=== PATIENT | male | born 1950 | race Caucasian/White ===

== ENCOUNTER 2017-04-29 04:25 | Inpatient (IN) | payer MEDICARE ==
[2017-04-29 07:34] LABS: Hematocrit 43 % (42-52); Hemoglobin 14.9 g/dl (14.0-18.0); Mean Corpuscular HGB Conc 34 g/dl (31-36); Mean Corpuscular Hemoglobin 31 pg (27-31); Mean Corpuscular Volume 91 fL (80-94); Mean Platelet Volume 7 um3 (7.4-10.4); Red Blood Count 4.77 10^6/ul (4.0-5.4); Red Cell Distribution Width 14 % (10.5-15); White Blood Count 15.6 10^3/ul (3.5-10.8)
--- NOTE | 2017-04-29 07:40 | ED ---
David Wynne Benjamin, scribed for Los Oviedo MD on 04/29/17 at 0636 . Abdominal Pain/Male - HPI Summary HPI Summary: 67yo male history of Parkinson's on Sinemet via peg tube c/o abdominal pain since 0100 this morning. Pt states abdominal pain started on the left side but not present diffusely in all sections of the abdomen. Abdomen also feels full. Pt has a G-tube inserted into his abdomen, which is connected to a biomedical service engineer. There is redness surrounding the insertion site, which is normal for the pt. No pain around the insertion site. Last BM was last night. Denies N/V/ D. No fever. - History of Current Complaint Chief Complaint: EDAbdPain Stated Complaint: ABD PAIN Time Seen by Provider: 04/29/17 06:16 Hx Obtained From: Patient, Family/Kitchen Steward/Stewardess - Onset/Duration: Sudden Onset, Lasting Hours, Still Present Timing: Constant Severity Initially: Moderate Severity Currently: Moderate Pain Intensity: 6 Pain Scale Used: 0-10 Numeric Location: Diffuse Radiates: No Aggravating Factor(s): Nothing Alleviating Factor(s): Nothing Associated Signs And Symptoms: Negative: Fever, Cough, Chest Pain, Blood in Stool, Nausea, Vomiting, Diarrhea - Allergies/Home Medications Allergies/Adverse Reactions: Allergies Allergy/AdvReac Type Severity Reaction Status Date / Time walnuts Allergy See Comment Uncoded 04/29/17 04:31 PMH/Surg Hx/FS Hx/Imm Hx - Surgical History Surgery Procedure, Year, and Place: G-tubed inserted Infectious Disease History: No Infectious Disease History: Denies: Traveled Outside the [place] in Last 30 Days - Family History Known Family History: Positive: Cardiac Disease, Hypertension Negative: Blood Disorder Review of Systems Constitutional: Negative Negative: Fever Eyes: Negative ENT: Negative Cardiovascular: Negative Respiratory: Negative Positive: Abdominal Pain - left sided , Other - G-tubed inserted in abdomen Genitourinary: Negative Positive: no symptoms reported Musculoskeletal: Negative Skin: Negative Neurological: Negative Psychological: Normal All Other Systems Reviewed And Are Negative: Yes Physical Exam - Summary Physical Exam Summary: Appearance: NAD. Slightly anxious appearing, Well-nourished Skin: Warm Eyes: Normal ENT: Normal Neck: Supple, nontender Respiratory: Clear to auscultation Cardiovascular: Normal Abdomen: Soft, nontender. LUQ G-tube in placed, attached to the biomedical service engineer. Mild erythema around the insertion site that is non tender and not warm. No rebound or guarding. Bowel: Present Musculoskeletal: Normal, Strength/ROM Intact Neurological: Normal, A&Ox3 Psychiatric: Normal Triage Information Reviewed: Yes Vital Signs On Initial Exam: Initial Vitals Temp Pulse Resp BP Pulse Ox 97.2 F 80 16 158/94 98 04/29/17 04:28 04/29/17 04:28 04/29/17 04:28 04/29/17 04:28 04/29/17 04:28 Vital Signs Reviewed: Yes Diagnostics - Vital Signs Vital Signs Temp Pulse Resp BP Pulse Ox 04/29/17 04:28 97.2 F 80 16 158/94 98 - Laboratory Lab Results: Lab Results 04/29/17 Range/Units 07:10 WBC 15.6 H (3.5-10.8) 10^3/ul RBC 4.77 (4.0-5.4) 10^6/ul Hgb 14.9 (14.0-18.0) g/dl Hct 43 (42-52) % MCV 91 (80-94) fL MCH 31 (27-31) pg MCHC 34 (31-36) g/dl RDW 14 (10.5-15) % Plt Count 245 (150-450) 10^3/ul MPV 7 L (7.4-10.4) um3 Neut % (Auto) 87.7 H (38-83) % Lymph % (Auto) 6.9 L (25-47) % Bucks % (Auto) 4.8 (1-9) % Eos % (Auto) 0.3 (0-6) % Baso % (Auto) 0.3 (0-2) % Absolute Neuts (auto) 13.7 H (1.5-7.7) 10^3/ul Absolute Lymphs (auto) 1.1 (1.0-4.8) 10^3/ul Absolute Monos (auto) 0.7 (0-0.8) 10^3/ul Absolute Eos (auto) 0 (0-0.6) 10^3/ul Absolute Basos (auto) 0 (0-0.2) 10^3/ul Absolute Nucleated RBC 0 10^3/ul Nucleated RBC % 0 Result Diagrams: 04/29/17 07:10 Lab Statement: Any lab studies that have been ordered have been reviewed, and results considered in the medical decision making process. Abdominal Pain Fem Course/Dx - Diagnoses Provider Diagnoses: Abdominal pain Discharge - Discharge Plan Condition: Stable Disposition: OTHER Discharge Disposition Comment: pt care signed out to AM attending Dr. De La O, pending abd CT Referrals: Rosalio Perez MD [Primary Care Provider] - The documentation as recorded by the David abel Benjamin accurately reflects the service I personally performed and the decisions made by me, Los Oviedo MD.
[2017-04-29 07:49] LABS: Albumin 4.3 g/dL (3.2-5.2); BUN/Creatinine Ratio 17.3 (8-20); C Reactive Protein 4.48 mg/L (< 5.00); Calcium 9.7 mg/dL (8.6-10.3); EGFR Non-African American 95.6 (>60); Globulin 3.1 g/dL (2-4); Magnesium 1.8 mg/dL (1.9-2.7); Potassium 4.2 mmol/L (3.5-5.0); Total Bilirubin 0.5 mg/dL (0.2-1.0); Total Protein 7.4 g/dL (6.4-8.9)
[2017-04-29] MEDS ORDERED: Iodixanol* (CONTRAST) 320 MG/ML 100 ML SDV IV ONE (08:01)
[2017-04-29] MEDS ORDERED: LORazepam INJ* 2 MG/ML 1 ML VIAL ONE (08:05)
--- NOTE | 2017-04-29 08:22 | RAD ---
HISTORY: Abdominal pain COMPARISONS: None VIEWS: Frontal views of the abdomen. FINDINGS: BOWEL: There is a nonobstructive bowel gas pattern. There is a large amount of stool within the colon. CALCULI: There are no abnormal calculi. BONES AND SOFT TISSUES: Mild degenerative changes are noted. OTHER FINDINGS: The lung bases are clear. There is no subphrenic gas. Metallic leads are noted overlying the upper abdomen. IMPRESSION: NONOBSTRUCTIVE BOWEL GAS PATTERN. LARGE AMOUNT OF STOOL WITHIN THE COLON.
[2017-04-29] MEDS ORDERED: LORazepam INJ* 2 MG/ML 1 ML VIAL IV PUSH ONE ×2 (08:47→08:58)
--- NOTE | 2017-04-29 09:07 | RAD ---
CLINICAL HISTORY: Left mid and lower abdominal pain. Relevant surgical history includes placement of a gastrostomy tube. COMPARISON: Relevant surgical history includes placement of a gastrostomy tube. TECHNIQUE: Contrast enhanced CT examination of the abdomen and pelvis from the lung bases through the initial tuberosities. The patient received 110 mL Visipaque 320 intravenously prior to imaging.The patient received oral contrast as well prior to imaging. FINDINGS: VISUALIZED LUNG BASES: Left greater than right linear based density is seen at the bilateral lung bases. Otherwise the visualized lung bases are grossly clear. There is no pleural effusion. ABDOMEN AND PELVIS: Postsurgical changes include a properly positioned gastrostomy tube. There is surgical material in the gastric lumen extending as far as the second portion of the duodenum. The liver, spleen and adrenal glands are grossly normal in appearance. The gallbladder is normal. At the head of the pancreas there is a 9 mm fat density focus in the head of the pancreas (image 33). The pancreas is otherwise normal in attenuation without visible pancreatic duct dilatation. There is stranding of the peripancreatic fat along the body and tail of the organ with trace fluid extending along the anterior margin of the perirenal fascia on the left (image 34). The right kidney is normal in appearance without focal mass, calcification or signs of hydronephrosis. At the mid-level left kidney there is a mixed attenuation exophytic cortical soft tissue nodule measuring 1.7 cm in greatest dimension (axial image 38 coronal image 73). There are contrast has only progressed as far as the distal small bowel which prevents a more thorough evaluation of the distal most small bowel and colon. The appendix measures 7 mm in diameter (coronal image 46 and axial image 64). The small and large bowel are not distended. Scattered distal colonic diverticula are noted but none exhibit focal inflammatory change. There is no gross retroperitoneal or mesenteric lymphadenopathy. There are small fat-containing inguinal hernias, slightly larger on the left than the right. The pelvic viscera is normal in appearance. The mildly calcified abdominal aorta and iliac arteries are normal in course and diameter. Degenerative changes include multilevel loss of intervertebral disc height involving the lower thoracic and lumbar spine.There are no sinister bone lesions. IMPRESSION: 1. CT findings are most consistent with pancreatitis. 2. Soft tissue nodule in the left kidney measuring 1.7 cm in greatest dimension. Further characterization with either a nonemergent ultrasound or contrast-enhanced MRI is advised. 3. Additional chronic, degenerative and iatrogenic findings described in the body the report.
[2017-04-29 09:17] LABS: Urine Bilirubin Negative (Negative); Urine Glucose Negative (Negative); Urine Nitrite Negative (Negative)
[2017-04-29] MEDS ORDERED: Morphine INJ* 2 MG/ML 1 ML SYRINGE (TWO MG - NEW SYRINGE VERSION) IV PRN (10:21)
[2017-04-29] MEDS ORDERED: Ondansetron INJ* 2 MG/ML VIAL IV PRN (10:21)
[2017-04-29] MEDS ORDERED: Acetaminophen TAB* 325 MG PO PRN (10:21)
[2017-04-29] MEDS: NS 0.9% 1000 ML* 2,000 ML IV ONE (11:26)
--- NOTE | 2017-04-29 12:33 | HP ---
CONTINUATION OF HISTORY AND PHYSICAL CC: (To providers listed above.) DATE OF ADMISSION: 04/29/2017. ASSESSMENT AND PLAN: 1. The patient is quite somnolent after receiving Ativan in the emergency room for the dystonic reac tion he was having. We will need to monitor his pain level closely. He has Morphine available for p ain and Zofran available for nausea. For now, he will be NPO except for sips of water with medicatio ns. 2. Advanced Parkinson's disease: The patient has a history of advanced Parkinson's which he has eden ated with Duopa, deep brain stimulator, Comtan and Azilect. The patient's states that when his medication regimen is working perfectly, he does quite well. She did note this morning, however, michael t he began to have a dystonic reaction around 6:45 a.m. She thought that he was receiving too much o f his Duopa and therefore turned off the infusion. The patient, however, continued to progress. Dr. De La O spoke with the patient's primary neurologist who recommended turning off the deep brain stimul ators. This was attempted; however, the patient worsened and therefore these were turned back on. A t this point, the patient is not receiving his Duopa, but his deep brain stimulators are active. The patient's questions when he should be restarted on his Duopa versus taking Sinemet instead. At this point, we will see how he is doing when the Ativan wears off. If the patient is not having a s evere dystonic reaction at that time, perhaps he can be started on his back-up Sinemet dosing. I am going to let the patient's guide me on the dosing of this as she stated that she can tell when h e needs his medication or not. Dr. France will consult on the patient to cordwood cutter helper in deciding when to resume his medications. 3. DVT prophylaxis: According to the adult thrombosis prophylaxis risk factor assessment guide, the patient has a total risk factor score of 3, making him high risk. He will be placed on Heparin 5000 units subcutaneous q.8 hours. 4. Code status is full. The patient's is his healthcare proxy. Seventy minutes were spent admitting this patient. [id number]/[facility] #: [id number]
[2017-04-29] MEDS: Pantoprazole IV* 40 MG IV SCH (12:41)
--- NOTE | 2017-04-29 13:48 | HP ---
CC: Dr. Perez; Dr. Rubina Rodriguez * HISTORY AND PHYSICAL: DATE OF ADMISSION: 04/29/17. PRIMARY CARE PROVIDER: Dr. Perez. NEUROLOGIST: Rubina Rodriguez MD. CHIEF COMPLAINT: Abdominal pain. HISTORY OF PRESENT ILLNESS: Mr. Dowling is a 67-year-old male who was brought to the emergency room by his after he began to complain of severe abdominal pain and he was noted to have be having dystonic reactions at home. The patient was having severe dystonic reaction in the emergency room and was given Ativan and since then has been quite groggy and really unable to provide any history at this point. The history is obtained from the patient's . She states that at approximately 12:30 a.m. on the day of admission he wakened her from sleep with complaints of left upper quadrant pain. She states that he will intermittently have issues with constipation and she thought that perhaps this is what was going on. She states that he has not had a bowel movement since this past Friday. However on Friday he had a significant amount of diarrhea after eating a tremendous amount of sweets to try to clean himself out. He has had no nausea or vomiting. As the morning progressed the patient began to have dystonic reaction. She notes that when he gets too much of his Duopa, he will get all cramped up. She started to notice this at approximately 6:45 a.m.; however, this progressed throughout the morning and ultimately she brought him to the emergency room to be evaluated. PAST MEDICAL HISTORY: 1. Parkinson's disease. 2. Depression. PAST SURGICAL HISTORY: Deep vein stimulator implantation x2, and what sounds to be feeding tube with both G and J ports. MEDICATIONS: 1. Duopa via pump continuously. 2. Sinemet CR 25/100 one tab p.o. daily. 3. Paxil 30 mg p.o. daily. 4. Azilect 1 mg p.o. daily. 5. Multivitamin 1 tab p.o. daily. 6. Calcium carbonate chews 500 mg p.o. t.i.d. with meals p.r.n. 7. Sinemet 25/100 one tab p.o. q.a.m. p.r.n. Parkinson symptoms. 8. Sinemet 25/100 one tab p.o. q.h.s. 9. Comtan 200 mg p.o. q. 4 hours. ALLERGIES: No known drug allergies. FAMILY HISTORY: Patient's mom had Parkinson disease. His dad had prostate cancer. SOCIAL HISTORY: The patient is a lifelong nonsmoker. He does not drink alcohol. 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 He is . He has 2 children. His , Neyl, is his healthcare proxy. REVIEW OF SYSTEMS: Is unobtainable from the patient as he received Ativan in the ER and is now quite somnolent. PHYSICAL EXAMINATION GENERAL: The patient is a well-developed, middle-aged male, lying in the stretcher sleeping, but arousable to voice and light touch. VITAL SIGNS: Blood pressure 145/77, pulse 85, respirations 22, temperature 97.2 , O2 saturation 93% on room air. HEENT: Pupils are equal. They are round. Extraocular muscles appear to be intact. Oropharynx is clear. Oral mucosa is dry. There is no submandibular, cervical or supraclavicular adenopathy. Thyroid is not enlarged. No thyroid nodules are noted. PULMONARY: Lungs are clear to auscultation anteriorly. CARDIAC: Normal S1, S2. Regular rate and rhythm. I do not appreciate any murmurs. There is no lower extremity edema. ABDOMEN: Bowel sounds present. Abdomen is soft, nondistended, he is moderately tender to palpation in the epigastrium and to the left side. There is a feeding tube exhibiting through the patient's upper abdomen. There is surrounding erythema that reportedly is chronic. MUSCULOSKELETAL: The patient does shift in bed, however he does not make any significant movements with his extremities. NEURO: The patient awakens to voice and light touch; however, quickly goes back to sleep; therefore, neuro exam is not performed at this time. There is no evidence of dystonic reaction currently. SKIN: Is warm and dry. There are no rashes. There is a slight area of erythema surrounding the feeding tube. PSYCH: Is unable to be assessed at this time. LABORATORY DATA: WBC 15.6, hemoglobin 14.9, hematocrit 43, platelets 245. INR 0.91. Sodium 135, potassium 4.2, chloride 103, CO2 26, BUN 14, creatinine 0.81. Glucose 130, lactic acid 0.9, calcium 9.7, magnesium 1.8, bilirubin 0.5, AST 15, ALT 3, alk phos 76. CRP 4.48. Albumin 4.3, lipase 3507. Urinalysis reveals trace ketones and otherwise is negative. Chest x-ray: No active disease. Abdomen x-ray: Nonobstructive bowel gas pattern; large amount of stool within the colon. CT abdomen and pelvis: CT findings are most consistent with pancreatitis. There is a soft tissue nodule on the left kidney measuring 1.7 cm in greatest dimension, further characterization with either a nonemergent ultrasound or contrast enhanced MRI as advised. ASSESSMENT AND PLAN: Mr. Dowling is a 67-year-old male with advanced Parkinson disease treated with a Duopa infusion, deep vein stimulator, Azilect and Comtan , who presents to the emergency room with complaints of abdominal pain and dystonic reaction. 1. Abdominal pain. Lab findings and CT imaging are consistent with acute pancreatitis. The patient does have tenderness in the epigastrium. The etiology of the pancreatitis, however, is unclear. In reviewing his medications it does not appear that any of these cause pancreatitis. He does not drink alcohol. I will add a triglyceride level to his lab work obtained in the emergency room and we will obtain a right upper quadrant ultrasound to evaluate for common bile duct stone which could cause gallstone pancreatitis. For now the patient will be admitted to the medical floor and started on aggressive IV fluid hydration. He will receive 2 L of normal saline bolused as it does not appear that he has received any in the emergency room yet. As he appears dehydrated he will get this 2 L boluses followed by normal saline at 100 mL/hour. We will need to monitor his pain level. The patient is quite somnolent after receiving Ativan in the emergency room for the dystonic reaction he was having. We will need to monitor his pain level closely. He has Morphine available for pain and Zofran available for nausea. For now, he will be NPO except for sips of water with medications. 2. Advanced Parkinson's disease: The patient has a history of advanced Parkinson's which he has treated with Duopa, deep brain stimulator, Comtan and Azilect. The patient's states that when his medication regimen is working perfectly, he does quite well. She did note this morning, however, that he began to have a dystonic reaction around 6:45 a.m. She thought that he was receiving too much of his Duopa and therefore turned off the infusion. The patient, however, continued to progress. Dr. De La O spoke with the patient's primary neurologist who recommended turning off the deep brain stimulators. This was attempted; however, the patient worsened and therefore these were turned back on. At this point, the patient is not receiving his Duopa, but his deep brain stimulators are active. The patient's questions when he should be restarted on his Duopa versus taking Sinemet instead. At this point, we will see how he is doing when the Ativan wears off. If the patient is not having a severe dystonic reaction at that time, perhaps he can be started on his back-up Sinemet dosing. I am going to let the patient's guide me on the dosing of this as she stated that she can tell when he needs his medication or not. Dr. France will consult on the patient to vessel scrapper helper in deciding when to resume his medications. 3. DVT prophylaxis: According to the adult thrombosis prophylaxis risk factor assessment guide, the patient has a total risk factor score of 3, making him high risk. He will be placed on Heparin 5000 units subcutaneous q.8 hours. 4. Code status is full. The patient's is his healthcare proxy. Seventy minutes were spent admitting this patient. [id number]/[facility] #: [id number]/[facility] #: [id number] KELLI
[2017-04-29] MEDS ORDERED: ENTACAPONE 200 MG PO SCH ×2 (14:00→21:00)
--- NOTE | 2017-04-29 14:08 | RAD ---
HISTORY: Gallstones pancreatitis COMPARISONS: CT dated April 29, 2017 TECHNIQUE: Multiple transverse and longitudinal ultrasound images were obtained of the right upper quadrant of the abdomen using grayscale and color Doppler imaging. FINDINGS: The study is technically limited LIVER: The liver is diffusely echogenic and coarse in echotexture, with decreased acoustic transmission. The liver is otherwise normal in shape, size, and contour. There is normal hepatopedal flow of the portal vein on Doppler imaging. BILIARY TREE: There is no intrahepatic or extrahepatic biliary dilatation. The common duct measures 0.5 cm. GALLBLADDER: The gallbladder is well-visualized. There is no cholelithiasis, gallbladder wall thickening, pericholecystic fluid, or sonographic Warner sign. PANCREAS: The pancreas is obscured by overlying bowel gas. RIGHT KIDNEY: The right kidney is normal in shape, size, contour, and echogenicity. There is no hydronephrosis or nephrolithiasis. The right kidney measures 10 x 6.4 x 4.7 cm. AORTA AND IVC: The aorta and IVC are unremarkable. FLUID: There are no pleural effusions. There is no free fluid within the hepatorenal recess. OTHER FINDINGS: None. IMPRESSION: 1. LIMITED STUDY. 2. FATTY INFILTRATION OF THE LIVER. 3. NO CHOLELITHIASIS.
[2017-04-29] MEDS: Heparin VIAL(*) 5000 UNITS/ML VIAL (FIVE THOUSAND) SUBCUT SCH ×2 (14:12→23:36)
[2017-04-29] MEDS: NS 0.9% 1000 ML* 1,000 ML IV SCH ×2 (14:12→23:52)
[2017-04-29] MEDS: Carbidopa/Levodop 25/100 MG TAB(*) PO SCH ×2 (16:32→18:03)
--- NOTE | 2017-04-29 17:15 | ED ---
Dony Wynne Angela, scribed for Kentrell De La O MD on 04/29/17 at 0805 . Progress - Progress Note Progress Note: This pt was signed out by Dr. Oviedo, pending disposition, awaiting CT abdomen/ pelvis. Pt is a 67 y/o male, with history of Parkinson's on Sinemet via peg tube, c/o abdominal pain since 0100 this morning. Per , pt walked into the ED this morning. notes the pt is usually constipated. His last normal BM was 5 days ago. Per , pt had half a pack of chocolate 5 days ago and had diarrhea (just lasting that day). Pt denies nausea, vomiting, fever. Pt has had normal fluid intake. paper feeder was placed 2 years ago. Pt is very stiff, which notes is abnormal for the pt. denies history of seizures. Pt's neurologist is in [place], Dr. Rubina Rodriguez. Physical Exam: VITAL SIGNS: Reviewed. GENERAL: Patient is a well-developed and nourished male. Patient is not in any acute respiratory distress. HEAD AND FACE: No signs of trauma. No ecchymosis, hematomas or skull depressions. No sinus tenderness. EYES: PERRLA, EOMI x 2, No injected conjunctiva, no nystagmus. EARS: Hearing grossly intact. Ear canals and tympanic membranes are within normal limits. MOUTH: Oropharynx within normal limits. NECK: Supple, trachea is midline, no adenopathy, no JVD, no carotid bruit, no c- spine tenderness, neck with full ROM. CHEST: Symmetric, no tenderness at palpation LUNGS: Clear to auscultation bilaterally. No wheezing or crackles. CVS: Regular rate and rhythm, S1 and S2 present, no murmurs or gallops appreciated. ABDOMEN: Soft, non-tender. No signs of distention. No rebound no guarding, and no masses palpated. Bowel sounds are normal. Positive J tube in the upper abdomen EXTREMITIES: FROM in all major joints, no edema, no cyanosis or clubbing. NEURO: Alert and oriented x 3. follows commands. Dyskinesia movements secondary to muscle spasms. SKIN: Dry and warm - Results/Orders Results/Orders: Abdomen XR, per radiologist: Nonobstructive bowel gas pattern. Large amount of stool within the colon. ED physician has reviewed this radiology report and agrees. CT abdomen/pelvis, per radiologist: IMPRESSION: 1. CT findings are most consistent with pancreatitis. 2. Soft tissue nodule in the left kidney measuring 1.7 cm in greatest dimension. Further characterization with either a nonemergent ultrasound or contrast-enhanced MRI is advised. 3. Additional chronic, degenerative and iatrogenic findings described in the body report. ED physician has reviewed this radiology report and agrees. Re-Evaluation - Re-Evaluation First Eval Re-Evaluation Time: 07:22 Comment: Pt continues to have disconnecting movements and muscle spasms. Second Eval Re-Evaluation Time: 08:05 Comment: 2 milligrams of Ativan was given to the pt and now he is resting comfortably. Third Eval Re-Evaluation Time: 09:32 Comment: I discussed the plan for admission with the and pt. They both understand and agree. Course/Dx - Course Course Of Treatment: This pt was signed out by Dr. Oviedo to follow up on CT abdomen/pelvis for further disposition and plan. When I went to evaluate the pt , he had disconnecting movements and pain secondary to muscle spasms. I discussed the case with Dr. Rubian Rodriguez, pts neurologist in [place]. She asked me to manipulate the batteries and after we tried the pt became worse. She agreed for the pt to be given Ativan. After 2 milligrams of Ativan, the pts symptoms improved. Test results shows lipase of 3507, consistent with acute pancreatitis. The abdomen/pelvis CT shows 1. CT findings are most consistent with pancreatitis. 2. Soft tissue nodule in the left kidney measuring 1.7 cm in greatest dimension. Further characterization with either a nonemergent ultrasound or contrast-enhanced MRI is advised. 3. Additional chronic, degenerative and iatrogenic findings described in the body report. The abdomen/pelvis CT confirms pancreatitis. The pt does not have RUQ pain and does not drink alcohol. However, the pt has a J- tube and is on the duodenum, which can be the cause of his pancreatitis. I discussed the case with Dr. Martinez , who accepted the pt for admission. Pt will be admitted to [facility] in stable condition with a diagnosis of pancreatitis. Pt is alert and oriented x2, at his baseline. - Diagnoses Provider Diagnoses: Pancreatitis, Constipation, Parkinson disease - Provider Notifications Discussed Care Of Patient With: Dr. Rubina Rodriguez - Pt's neurologist Time Discussed With Above Provider: 08:00 Instructed by Provider To: Other - I discussed the pt's case with Dr. Rodriguez, pt 's neurologist. She requested to turn off the medical case worker and infusions. We tried turning them off but the symptoms worsened. She recommened to turn the device on. Pt was given 2 milligrams of Ativan and now the pt is resting comfortably. [09:31] I discussed pt care with Dr. Martinez, who has agreed to admit the pt. The documentation as recorded by the Dony abel Angela accurately reflects the service I personally performed and the decisions made by me, Kentrell De La O MD.
[2017-04-29] MEDS ORDERED: Carbidopa/Levodop 25/100 MG TAB(*) PO SCH (20:00)
--- NOTE | 2017-04-29 22:24 | CONS ---
CC: Dr. Rubina Rodriguez, Movement Disorders Unit, [facility], [facility] * NEUROLOGY CONSULTATION: DATE OF CONSULT: 04/29/17 LOCATION: He is in room 401. REFERRING PHYSICIAN: Dr. Priya Martinez. PRIMARY CARE PHYSICIAN: Dr. Perez. CHIEF COMPLAINT: History of Parkinson's disease, pancreatitis. HISTORY OF PRESENT ILLNESS: Kasi Dowling is a 67-year-old man admitted today via the emergency room with abdominal pain and constipation and dystonia. He has Parkinson's disease and is able to tell me when I aroused him that it began about when he was 49. I subsequently spoke with Dr. Rodriguez on the phone and got further history. His was present when he came in and she provided history as well, but she is not present during my evaluation this afternoon. He had deep brain stimulators put in some years ago and they did not achieve the desired effect. He subsequently had a Duodopa duodenal infusion pump put in and he responded very well to that. He has had problems with intermittent constipation and that started up sometime within the last week or more and he not had had a bowel movement in several days. He started to have marked dystonia today and ended up in the emergency room with abdominal pain and dystonia. In speaking with Dr. Rodriguez, he tends to get dystonia with peak doses. Most of his dystonia is around his face and hands. Should also note that when he was seen in followup up there within recent months, his tubing was coiled in the small intestine. Other than Parkinson's disease and depression, his past medical history is unremarkable. He has had the procedures outlined above. MEDICATIONS: At home, consist of: 1. Duodopa pump. 2. Sinemet CR 25/100 one p.o. in the morning. 3. Regular Sinemet 25/100 one p.o. q.a.m. and one at bedtime. 4. Comtan 200 mg p.o. q.4 hours. 5. Rasagiline 1 mg p.o. q. day. 6. Paxil 30 mg p.o. q. day. ALLERGIES: He is not reported to have any allergies. REVIEW OF SYSTEMS: From the patient is unproductive as he is somnolent. He has received Ativan in the emergency room and apparently that calmed down the dystonia. PHYSICAL EXAM: Temperature is 98 axillary, has not recorded a fever. Blood pressure 140/80 earlier, more recently 168/75; heart rate in the 70s and seems regular. Respirations are about 18 and regular. Oxygen saturation is 98% on room air. Skin is somewhat pale. Heart is in a regular rhythm without murmurs. Head is atraumatic. Oral mucosa is moist. He has bilateral post surgical changes on the upper head from his prior DBS insertion. He has a subcutaneous generator in the anterior chest. He has a percutaneous tube for his Duodopa pump. Lungs are clear bilaterally. Skin is warm and dry. Neurologically, he is somnolent, but arouses to loud voice and gentle shaking. He is able to say that he is in the hospital in [place]. He has to be stimulated to be kept awake. When he is asleep, he is pretty motionless and snores. When he is aroused, he develops oral facial dystonia and some hand dystonia. There is no rigidity in the limbs even when he sat up when an aide came in to check some vitals. He did not sit up for long and lied back down again. There was no tremor. I was able to arouse him enough to perform finger taps in both hands slowly and with a little bit of clumsiness bilaterally. Speech was dysarthric and soft, but the few words he did speak were fairly intelligible. DIAGNOSTIC STUDIES/LAB DATA: Includes a CT of the abdomen and pelvis interpreted as showing pancreatitis. A chest x-ray interpreted as normal. Other laboratory is notable for a normal chemistry profile other than glucose 130, magnesium 1.8, lipase elevated at 3507. CBC is notable for elevated white blood cell count of 15.6 with a slight shift with 87.7% neutrophils. Hemoglobin and platelet count and INR are all normal. Urinalysis unremarkable. IMPRESSION AND PLAN: Impression is that of pancreatitis in a patient with advanced Parkinson's disease. There is some question as to whether or not his Duodopa pump is working effectively with coiling in the small intestine. I spoke with Dr. Rodriguez and she also raised the hypothesis of possible obstruction of the pancreatic duct from the tubing. I spoke with Dr. Martinez and she is going to ask GI to see him. Dr. Rodriguez suggested that if they can potentially scope him and straighten up the tubing, that might be helpful. If not, we may have to transfer him to [place] particularly if he needs the tubing removed and replaced. If the pump can be continued, we will continue it, but if not, he will be switched to oral carbidopa/levodopa immediate release 1- 1/2 tablets every 2 hours from 4 a.m. to 10 p.m. after I discussed the case with Dr. Rodriguez. His other meds will be continued as before. Dr. Rodriguez has asked that GI contact her directly at her cell phone of [phone]. I will speak with his when she is available. [id number]/[facility] #: [id number] [facility]
--- NOTE | 2017-04-29 22:49 | CONS ---
GASTROENTEROLOGY CONSULT: DATE OF CONSULT: 04/29/17 CONSULTING PHYSICIAN: Priya Martinez DO REASON FOR CONSULTATION: Acute pancreatitis, initial episode with question of drug absorption through his percutaneous duodenal tube. HISTORY OF PRESENT ILLNESS: This 67-year-old man with parkinsonism, who has been receiving special dopaminergic medications via continuous enteric pump, developed abdominal pain in the seed sorter hours. He was brought to the emergency room and was found to be uncomfortable with a white count of 15 and a lipase of 3500 with normal LFTs. His triglycerides were normal at 146 and calcium 9.7. His neurologic functioning has been impaired for the last day, raising a question of absorption or mechanical stability of his enteric drug administration. Apparently in the past, displacement or kinking of the tube was felt to be related to loss of parkinsonism control. He says he has never had pancreatitis before. He is not aware of anyone else in the family having it. He is a nondrinker. PAST MEDICAL HISTORY: 1. Parkinsonism. 2. Deep brain simulator implantation. 3. Gastrostomy tube. 4. Depression. FAMILY HISTORY: Negative for pancreatitis. His mother had parkinsonism. SOCIAL HISTORY: He lived in the [facility] about 2 years ago when he moved here to be near his daughter and 3 granddaughters. He is a lifetime nonsmoker. REVIEW OF SYSTEMS: From various sources, the review of systems is that he has not had a CVA, seizures, arrhythmias, [place], TB, hepatitis, abdominal surgery, or renal stones. PHYSICAL EXAM: He is an older man in bed, afebrile. Pulse 85, blood pressure 149/78. Skin is a little bit warm, but dry. HEENT exam shows no icterus. He has moist mucous membranes. He has no adenopathy or bruits. His lungs are clear. There was no cough. Abdomen is symmetric with no bowel sounds currently , though it is soft and with minimal tenderness. Extremities show no edema. Neurologic was not tested. He has been seen by Dr. France of Neurology. LABORATORY DATA: Hemoglobin 14.9, hematocrit 43, MCV 91, platelets 245. Electrolytes normal. BUN 14, creatinine 0.81, bilirubin 0.5, ALT 3, alkaline phosphatase 76 with all these labs on admission and no prior for comparison. Albumin is 4.3. RADIOLOGY REVIEW: Right upper quadrant ultrasound shows no stones. CT scan, coronal images number 50 clearly shows the distal tip of the feeding tube projecting straight in axis with the second portion of the duodenum. The tube coils around the duodenal bulb, but is not apparently kinked and clearly has a continuous smooth contour going around the bulb and then down the second portion. Images of the pancreas did not show any stranding near the head or distal body of the pancreas. Pancreatic duct is not obviously dilated and there are no calcifications. Inflammation extends out towards the spleen. IMPRESSION: This 67-year-old man presents with prodrome of constipation in the setting of parkinsonism and then left upper quadrant pain which corresponds fairly well to the CT showing inflammation in the body and tail of the pancreas. The cause of this is unknown, but the setting with no obvious metabolic or medication cause raise question of an intraductal papillary mucinous neoplasm or intrapancreatic mucinous neoplasm. This could be assessed with EUS once he recovers. Right now, he does not appear very functional presumably based on some ileus and alteration in the absorption of his medication. It will be surprising not to have that altered by a bout of pancreatitis. My interpretation of the x- rays is that there is not a kink or mechanical cause of his drug to be delivered or absorbed. [id number]/[facility] #: [id number] MTDD
[2017-04-29] MEDS: Carbidopa/Levodop CR 50/200(*) TAB.CR PO SCH (23:34)
[2017-04-30] MEDS: Carbidopa/Levodop 25/100 MG TAB(*) PO SCH ×2 (02:52→20:28)
[2017-04-30] MEDS: CMCS: Entacapone (NF) 200 MG TAB PO SCH ×3 (02:52→20:00)
[2017-04-30] MEDS ORDERED: Carbidopa/Levodop 25/100 MG TAB(*) PO SCH ×2 (04:00→21:00)
[2017-04-30] MEDS: Heparin VIAL(*) 5000 UNITS/ML VIAL (FIVE THOUSAND) SUBCUT SCH ×3 (07:17→20:06)
[2017-04-30 09:15] LABS: Hematocrit 40 % (42-52); Hemoglobin 13.5 g/dl (14.0-18.0); Mean Corpuscular HGB Conc 33 g/dl (31-36); Mean Corpuscular Hemoglobin 31 pg (27-31); Mean Corpuscular Volume 92 fL (80-94); Mean Platelet Volume 7 um3 (7.4-10.4); Red Blood Count 4.38 10^6/ul (4.0-5.4); Red Cell Distribution Width 14 % (10.5-15); White Blood Count 12.3 10^3/ul (3.5-10.8)
[2017-04-30 09:28] LABS: BUN/Creatinine Ratio 9.8 (8-20); Calcium 8.7 mg/dL (8.6-10.3); EGFR African American 121.3 (>60); EGFR Non-African American 94.3 (>60); Potassium 4.3 mmol/L (3.5-5.0)
[2017-04-30] MEDS: PARoxetine HCL TAB* 10 MG PO SCH (09:28)
[2017-04-30] MEDS: CMC:Rasagiline (NF) 1 MG TAB PO SCH (09:28)
[2017-04-30] MEDS: Pantoprazole IV* 40 MG IV SCH (11:52)
--- NOTE | 2017-04-30 12:54 | PN ---
Subjective Date of Service: 04/30/17 Interval History: Pt is feeling ok. He has a mild amount of pain in his epigastrum. He is anxious to go home however after we talked this AM he understands the rationale to staying overnight. Objective Active Medications: Acetaminophen (Tylenol Tab*) 650 mg PO Q4H PRN PRN Reason: PAIN Carbidopa/Levodopa (Sinemet 25/100 Tab(*)) 1 tab PO DAILY@0200 [facility] Last Admin: 04/30/17 02:52 Dose: 1 tab Carbidopa/Levodopa (Sinemet Cr 50/200(*)) 1.5 tab.cr PO 1999 [facility] Last Admin: 04/29/17 23:34 Dose: 1.5 tab.cr Entacapone (Comtan(Nf)) 200 mg PO 0200,899,1999 [facility] Last Admin: 04/30/17 09:28 Dose: 200 mg Heparin Sodium (Porcine) (Heparin Vial(*)) 5,000 units SUBCUT Q8HR [facility] Last Admin: 04/30/17 07:17 Dose: 5,000 units Sodium Chloride (Ns 0.9% 1000 Ml*) 1,000 mls @ 100 mls/hr IV PER RATE [facility] Last Admin: 04/29/17 23:52 Dose: 100 mls/hr Morphine Sulfate (Morphine Inj (Syringe)*) 2 mg IV Q2H PRN PRN Reason: PAIN Ondansetron HCl (Zofran Inj*) 4 mg IV Q6H PRN PRN Reason: NAUSEA Pantoprazole Sodium (Protonix Iv*) 40 mg IV Q24H [facility] Last Admin: 04/30/17 11:52 Dose: 40 mg Paroxetine HCl (Paxil Tab*) 30 mg PO DAILY [facility] Last Admin: 04/30/17 09:28 Dose: 30 mg Rasagiline (Azilect (Nf)) 1 mg PO DAILY [facility] Last Admin: 04/30/17 09:28 Dose: 1 mg Vital Signs - 8 hr 04/30/17 04/30/17 08:00 08:32 Temperature 98.3 F Pulse Rate 81 Respiratory 16 16 Rate Blood Pressure 130/80 (mmHg) O2 Sat by Pulse 96 Oximetry Oxygen Devices in Use Now: None Appearance: Middle aged male sitting up in a chair, NAD Eyes: No Scleral Icterus Ears/Nose/Mouth/Throat: Mucous Membranes Moist Respiratory: Symmetrical Chest Expansion and Respiratory Effort, Clear to Auscultation Cardiovascular: NL Sounds; No Murmurs; No JVD, RRR, No Edema Abdominal: - - BS+ soft, ND, mildly tender to palpation in the epigastrum. Extremities: No Clubbing, Cyanosis Skin: No Rash or Ulcers, No Nodules or Sclerosis Neurological: Alert and Oriented x 3 Result Diagrams: 04/30/17 08:58 04/30/17 08:54 Additional Lab and Data: Lab Results 04/29/17 Range/Units 07:10 WBC 15.6 H (3.5-10.8) 10^3/ul RBC 4.77 (4.0-5.4) 10^6/ul Hgb 14.9 (14.0-18.0) g/dl Hct 43 (42-52) % MCV 91 (80-94) fL MCH 31 (27-31) pg MCHC 34 (31-36) g/dl RDW 14 (10.5-15) % Plt Count 245 (150-450) 10^3/ul MPV 7 L (7.4-10.4) um3 Neut % (Auto) 87.7 H (38-83) % Lymph % (Auto) 6.9 L (25-47) % [place] % (Auto) 4.8 (1-9) % Eos % (Auto) 0.3 (0-6) % Baso % (Auto) 0.3 (0-2) % Absolute Neuts (auto) 13.7 H (1.5-7.7) 10^3/ul Absolute Lymphs (auto) 1.1 (1.0-4.8) 10^3/ul Absolute Monos (auto) 0.7 (0-0.8) 10^3/ul Absolute Eos (auto) 0 (0-0.6) 10^3/ul Absolute Basos (auto) 0 (0-0.2) 10^3/ul Absolute Nucleated RBC 0 10^3/ul Nucleated RBC % 0 Assess/Plan/Problems-Billing Mr. Dowling is a 67 yo M with a h/o advanced parkinson's disease which he is treated with deep brain stimulation and a duopa enteric infusion who presented to the ER with c/o abdominal pain and dystonia and was found to have acute pancreatitis. - Patient Problems (1) Acute pancreatitis Current Visit: Yes Status: Acute Code(s): K85.90 - ACUTE PANCREATITIS WITHOUT NECROSIS OR INFECTION, UNSP SNOMED Code(s): 359903645 Comment: The patient is improving both by lab analysis and clinically. Will advance his diet to full liquids and see if his pain worsens. Will keep on fulls today and if he does ok with that can advance to regular tomorrow. If he tolerates regular food tomorrow can likely go home. Recheck lipase tomorrow. Continue IVF for now. (2) Dystonia Current Visit: Yes Status: Acute Code(s): G24.9 - DYSTONIA, UNSPECIFIED SNOMED Code(s): 44957010 Comment: Much improved today. I question if he developed a severe dystonic rxn just because he was ill from the acute pancreatitis. He is doing well today without any dystonia. (3) Parkinson's disease Current Visit: Yes Status: Acute Code(s): G20 - PARKINSON'S DISEASE SNOMED Code(s): 60817494 Comment: Continue home medication regimen of sinemet, azilect and comtan. Continue duopa enteric infusion. Pt is back to baseline. (4) DVT prophylaxis Current Visit: Yes Status: Acute Code(s): WSA8205 - SNOMED Code(s): 879206280 Comment: heparin SQ (5) Full code status Current Visit: Yes Status: Acute Code(s): Z78.9 - OTHER SPECIFIED HEALTH STATUS SNOMED Code(s): 576666454
[2017-04-30] MEDS: NS 0.9% 1000 ML* 1,000 ML IV SCH (12:57)
[2017-04-30] MEDS: Carbidopa/Levodop CR 50/200(*) TAB.CR PO SCH (20:01)
[2017-05-01] MEDS: Carbidopa/Levodop 25/100 MG TAB(*) PO SCH ×2 (02:34→05:36)
[2017-05-01] MEDS: CMCS: Entacapone (NF) 200 MG TAB PO SCH ×2 (02:37→09:10)
[2017-05-01 06:25] LABS: Hematocrit 37 % (42-52); Hemoglobin 12.6 g/dl (14.0-18.0); Mean Corpuscular HGB Conc 34 g/dl (31-36); Mean Corpuscular Hemoglobin 31 pg (27-31); Mean Corpuscular Volume 91 fL (80-94); Mean Platelet Volume 7 um3 (7.4-10.4); Red Blood Count 4.09 10^6/ul (4.0-5.4); Red Cell Distribution Width 14 % (10.5-15); White Blood Count 10.6 10^3/ul (3.5-10.8)
[2017-05-01 06:37] LABS: BUN/Creatinine Ratio 8.2 (8-20); Calcium 8.8 mg/dL (8.6-10.3); EGFR African American 116.3 (>60); EGFR Non-African American 90.5 (>60); Potassium 4.1 mmol/L (3.5-5.0)
[2017-05-01] MEDS: Heparin VIAL(*) 5000 UNITS/ML VIAL (FIVE THOUSAND) SUBCUT SCH (07:31)
[2017-05-01 07:49] VITALS: BP 138/71
[2017-05-01] MEDS: CMC:Rasagiline (NF) 1 MG TAB PO SCH (09:10)
[2017-05-01] MEDS: PARoxetine HCL TAB* 10 MG PO SCH (09:11)
--- NOTE | 2017-05-01 10:44 | PN ---
Subjective Date of Service: 05/01/17 Interval History: Pt is feeling well. Minimal abdominal pain. He tolerated full liquids without any difficultly. He is ready to go home. Objective Active Medications: Acetaminophen (Tylenol Tab*) 650 mg PO Q4H PRN PRN Reason: PAIN Carbidopa/Levodopa (Sinemet Cr 50/200(*)) 1.5 tab.cr PO 1999 [facility] Last Admin: 04/30/17 20:01 Dose: 1.5 tab.cr Carbidopa/Levodopa (Sinemet 25/100 Tab(*)) 1 tab PO 2100 [facility] Last Admin: 04/30/17 20:58 Dose: Not Given Entacapone (Comtan(Nf)) 200 mg PO 0200,899,1999 [facility] Last Admin: 05/01/17 09:10 Dose: 200 mg Heparin Sodium (Porcine) (Heparin Vial(*)) 5,000 units SUBCUT Q8HR ON [facility] OF [facility] Last Admin: 05/01/17 07:31 Dose: 5,000 units Sodium Chloride (Ns 0.9% 1000 Ml*) 1,000 mls @ 100 mls/hr IV PER RATE [facility] Last Admin: 04/30/17 12:57 Dose: 100 mls/hr Morphine Sulfate (Morphine Inj (Syringe)*) 2 mg IV Q2H PRN PRN Reason: PAIN Ondansetron HCl (Zofran Inj*) 4 mg IV Q6H PRN PRN Reason: NAUSEA Pantoprazole Sodium (Protonix Iv*) 40 mg IV Q24H ON [facility] OF [facility] Last Admin: 04/30/17 11:52 Dose: 40 mg Paroxetine HCl (Paxil Tab*) 30 mg PO DAILY ON [facility] Last Admin: 05/01/17 09:11 Dose: 30 mg Rasagiline (Azilect (Nf)) 1 mg PO DAILY [facility] Last Admin: 05/01/17 09:10 Dose: 1 mg Vital Signs - 8 hr 05/01/17 05/01/17 05/01/17 03:30 07:47 07:51 Temperature 99.2 F Pulse Rate 95 78 Respiratory 16 16 16 Rate Blood Pressure 158/82 138/71 138/71 (mmHg) O2 Sat by Pulse 96 97 97 Oximetry 05/01/17 10:34 Temperature Pulse Rate Respiratory 18 Rate Blood Pressure (mmHg) O2 Sat by Pulse Oximetry Oxygen Devices in Use Now: None Appearance: Middle aged male lying in bed, NAD Eyes: No Scleral Icterus Ears/Nose/Mouth/Throat: Mucous Membranes Moist Respiratory: Symmetrical Chest Expansion and Respiratory Effort, Clear to Auscultation Cardiovascular: NL Sounds; No Murmurs; No JVD, RRR, No Edema Abdominal: NL Sounds; No Tenderness; No Distention Extremities: No Clubbing, Cyanosis Skin: No Rash or Ulcers, No Nodules or Sclerosis Neurological: Alert and Oriented x 3 Result Diagrams: 05/01/17 05:35 05/01/17 05:35 Additional Lab and Data: Lab Results 04/29/17 Range/Units 07:10 WBC 15.6 H (3.5-10.8) 10^3/ul RBC 4.77 (4.0-5.4) 10^6/ul Hgb 14.9 (14.0-18.0) g/dl Hct 43 (42-52) % MCV 91 (80-94) fL MCH 31 (27-31) pg MCHC 34 (31-36) g/dl RDW 14 (10.5-15) % Plt Count 245 (150-450) 10^3/ul MPV 7 L (7.4-10.4) um3 Neut % (Auto) 87.7 H (38-83) % Lymph % (Auto) 6.9 L (25-47) % [place] % (Auto) 4.8 (1-9) % Eos % (Auto) 0.3 (0-6) % Baso % (Auto) 0.3 (0-2) % Absolute Neuts (auto) 13.7 H (1.5-7.7) 10^3/ul Absolute Lymphs (auto) 1.1 (1.0-4.8) 10^3/ul Absolute Monos (auto) 0.7 (0-0.8) 10^3/ul Absolute Eos (auto) 0 (0-0.6) 10^3/ul Absolute Basos (auto) 0 (0-0.2) 10^3/ul Absolute Nucleated RBC 0 10^3/ul Nucleated RBC % 0 Assess/Plan/Problems-Billing Mr. Dowling is a 67 yo M with a h/o advanced parkinson's disease which he is treated with deep brain stimulation and a duopa enteric infusion who presented to the ER with c/o abdominal pain and dystonia and was found to have acute pancreatitis. - Patient Problems (1) Acute pancreatitis Current Visit: Yes Status: Acute Code(s): K85.90 - ACUTE PANCREATITIS WITHOUT NECROSIS OR INFECTION, UNSP SNOMED Code(s): 727922421 Comment: Resolved. Pt is ready to go home. We reviewed advancing his diet at home. (2) Dystonia Current Visit: Yes Status: Acute Code(s): G24.9 - DYSTONIA, UNSPECIFIED SNOMED Code(s): 26097639 Comment: The patient's notes he needs more duopa currently he is having pursing of the lips. She will continue to adjust his duopa as needed. (3) Parkinson's disease Current Visit: Yes Status: Acute Code(s): G20 - PARKINSON'S DISEASE SNOMED Code(s): 10993176 Comment: Continue home medication regimen of sinemet, azilect and comtan. Continue duopa enteric infusion. Pt is back to baseline. (4) DVT prophylaxis Current Visit: Yes Status: Acute Code(s): DGD3334 - SNOMED Code(s): 727594751 Comment: heparin SQ (5) Full code status Current Visit: Yes Status: Acute Code(s): Z78.9 - OTHER SPECIFIED HEALTH STATUS SNOMED Code(s): 056961038
--- NOTE | 2017-05-01 15:33 | DS ---
CC: Dr. Perez; Dr. Rubina Rodriguez * DISCHARGE SUMMARY: DATE OF ADMISSION: 04/29/17 DATE OF DISCHARGE: 05/01/17 PRIMARY CARE PROVIDER: Dr. Perez. NEUROLOGIST: Dr. Rubina Rodriguez. PRINCIPAL DIAGNOSES: 1. Acute idiopathic pancreatitis. 2. Advanced Parkinson disease with episode of severe dystonic reaction. DISCHARGE MEDICATIONS: 1. Duodopa enteric infusion. 2. Comtan 200 mg p.o. t.i.d. 3. Sinemet 25/100 one tab p.o. q.a.m. 4. Sinemet CR 50/200 one and a half tabs p.o. q.h.s. 5. Paxil 30 mg p.o. daily. 6. Azilect 1 mg p.o. daily. 7. Multivitamin 1 tab p.o. daily. 8. Tums 500 mg p.o. t.i.d. with meals p.r.n. indigestion. HOSPITAL COURSE: Mr. Dowling is a 67-year-old male with advanced Parkinson disease, which is treated with deep brain stimulation and continuous Duodopa enteric infusion. The patient was awakened from sleep with severe left upper quadrant abdominal pain. The patient over the course of the earth burner developed then a dystonic reaction. The patient was ultimately brought to the emergency room for evaluation where he was identified to have acute pancreatitis both by lab and CT findings. The patient was put on bowel rest and aggressive IV fluid hydration. The patient had dramatic improvement in his lipase level and clinical symptoms. The patient has been advanced to a full liquid diet, which he has tolerated without any difficulty. His pain at this point is minimal. The patient is anxious to be discharged home. The patient's lipase level went from 3507 down to 84 on the day of discharge. In terms of the dystonic reaction that developed on the day of admission, the patient is now markedly improved. It is unclear what precipitated the dystonia. I questioned if it may have been related to the fact that the patient was acutely ill with pancreatitis. The patient's has made adjustments in the patient's Duodopa enteric infusion. He is doing much better and at this point is essentially back to baseline. His states that intermittently they will need to adjust the pump for the Duodopa to either provide more or less Duodopa to help with the symptoms. The patient again feels stable from this standpoint. The patient's J tube is coiled within the duodenum. There is no true kinks in this as noted by Dr. Mahoney who consulted for concerns of malfunction with the tube. At this point, it is felt since the patient is improved and his Duodopa infusion is being able to be maintained, the patient can follow back up with Dr. Rodriguez in [place] for adjustments in his J-tube placement. FOLLOWUP CONCERNS: The patient is being discharged home today, 05/01/17. ACTIVITY LEVEL: As tolerated. DIET: Regular as tolerated. CONDITION ON DISCHARGE: Improved and stable. The patient is to follow up with Dr. Perez in the next 4 to [address] Rodriguez in the next 1 to 2 weeks. TIME SPENT: 35 minutes was spent discharging this patient. [id number] #: [id number] MTDD
== END 2017-05-01 11:30 | disposition home or self-care (01) | DRG 440 ==
LOC: ED 04:25 → MED 09:32
PROVIDERS: ADMIT Hospitalist; ATTEND Hospitalist
DX: K85.00 Idiopathic acute pancreatitis without necrosis or infection (principal); G24.9 Dystonia, unspecified; F41.9 Anxiety disorder, unspecified; G20 Parkinson's disease; F32.9 Major depressive disorder, single episode, unspecified; Z82.0 Family history of epilepsy and other diseases of the nervous system; Z80.42 Family history of malignant neoplasm of prostate; Z93.4 Other artificial openings of gastrointestinal tract status; Z91.018 Allergy to other foods; Z82.49 Family history of ischemic heart disease and other diseases of the circulatory system
CPT/HCPCS: 36415; 74000; 74177; 76705; 80048; 80053; 81003; 83605; 83690; 83735; 84478; 85025; 85027; 85610; 85730; 86140; A9270-GY; J1644; J2060; Q9967